=== PATIENT | male | born 1960 | race African-American/Black ===

== ENCOUNTER 2021-11-07 13:50 | Emergency (ER) | payer OTHER ==
[~2021-11-07] VITALS: Ht 175.3 cm; Wt 86.3 kg
[2021-11-07] MEDS ORDERED: MORPHINE SULFATE 4 MG/ML SYR/VIAL IV ONE ×2 (14:45→17:15)
[2021-11-07] MEDS ORDERED: SODIUM CHLORIDE 0.9% 500 ML IV ONE (14:45)
[2021-11-07] MEDS ORDERED: ONDANSETRON HCL 4 MG/2 ML VIAL IV ONE ×2 (14:45→17:15)
[2021-11-07 17:02] LABS: Basophils # (auto) 0 10 ^3/uL (0-0.2); Basophils % (auto) 0.2 % (0.0-2.0); Eosinophils # (auto) 0 10 ^3/uL (0-0.8); Hematocrit 49.5 % (41.0-53.0); Hemoglobin 15.8 g/dL (13.5-17.5); Lymphocytes # (auto) 0.8 10 ^3/uL (0.4-5.4); Lymphocytes % (auto) 4.8 % (10.0-50.0); Mean Corpuscular Hemoglobin 28.7 pg (28.0-32.0); Mean Corpuscular Hgb Conc. 31.9 g/dL (32.0-36.0); Mean Corpuscular Volume 89.7 fL (80.0-100.0); Monocytes # (auto) 1.3 10 ^3/uL (0-1.3); Monocytes % (auto) 8.1 % (0.0-12.0); Neutrophils # (auto) 13.8 10 ^3/uL (1.6-8.6); Neutrophils % (auto) 86.9 % (37.0-80.0); Red Blood Cells 5.52 10^6/uL (4.5-5.90); Red Cell Distribution Width 14.2 % (11.8-14.3); White Blood Cell 15.9 10^3/uL (4.4-10.8)
[2021-11-07] MEDS ORDERED: LIDOCAINE 1% HCL (LOCAL ANESTH.) INJ 20ML MDV ONE (17:12)
[2021-11-07 17:22] LABS: Albumin 4.3 g/dL (3.4-5.0); Calcium 10.3 mg/dL (8.5-10.1)
[2021-11-07 17:25] LABS: BUN/Creatinine Ratio 9.9; Bilirubin, Total 0.8 mg/dL (0.2-1.0); Total Protein 7.9 g/dL (6.4-8.2)
[2021-11-07] MEDS ORDERED: LIDOCAINE 1% HCL (LOCAL ANESTH.) INJ 20ML MDV ID ONE (17:30)
[2021-11-07 19:36] VITALS: BP 122/80
== END 2021-11-07 19:53 | disposition short-term general hospital (02) ==
LOC: ER 13:50
DX: S22.41XA Multiple fractures of ribs, right side, initial encounter for closed fracture (principal); J93.9 Pneumothorax, unspecified; D72.829 Elevated white blood cell count, unspecified; J98.2 Interstitial emphysema; W01.0XXA Fall on same level from slipping, tripping and stumbling without subsequent striking against object, initial encounter; Y93.89 Activity, other specified; Y92.89 Other specified places as the place of occurrence of the external cause; Y99.8 Other external cause status
CPT/HCPCS: 36415; 36556; 70450; 71045; 71260; 72125; 74177; 80053; 85025; 86850; 86900; 86901; 93005; 96361; 96374; 96375; 96376; 99291; J2001; J2270; J2405; J7030